=== PATIENT | female | born 2000 | race Two or more races ===

== ENCOUNTER 2023-09-13 01:15 | Emergency (ER) | payer MEDICAID, OTHER ==
[~2023-09-13] VITALS: Ht 167.6 cm; Wt 93.6 kg
[2023-09-13] MEDS: SODIUM CHLORIDE 0.9% 1,000 ML IVB ONE (02:30)
[2023-09-13] MEDS: MORPHINE SULFATE INJ 2 MG/ml SYRG IM ONE (02:30)
[2023-09-13 02:52] LABS: Basophils # (auto) 0 10 ^3/uL (0-0.2); Basophils % (auto) 0.3 % (0.0-2.0); Eosinophils # (auto) 0 10 ^3/uL (0-0.8); Eosinophils % (auto) 0.1 % (0.0-7.0); Hematocrit 38.2 % (36.0-46.0); Hemoglobin 12.8 g/dL (12.2-16.2); Lymphocytes # (auto) 1.5 10 ^3/uL (0.4-5.4); Lymphocytes % (auto) 13.8 % (10.0-50.0); Mean Corpuscular Hemoglobin 29.2 pg (28.0-32.0); Mean Corpuscular Hgb Conc. 33.5 g/dL (32.0-36.0); Mean Corpuscular Volume 87.1 fL (80.0-100.0); Monocytes # (auto) 0.4 10 ^3/uL (0-1.3); Monocytes % (auto) 4.1 % (0.0-12.0); Neutrophils # (auto) 8.9 10 ^3/uL (1.6-8.6); Neutrophils % (auto) 81.7 % (37.0-80.0); Red Blood Cells 4.39 10^6/uL (4.0-5.20); Red Cell Distribution Width 13.5 % (11.8-14.3); White Blood Cell 10.9 10^3/uL (4.4-10.8)
[2023-09-13 03:06] LABS: INR 1.06 (0.9-1.15); Prothrombin Time 11.1 sec (9.3-11.8)
[2023-09-13 03:07] LABS: Alanine Aminotransferase 37 U/L (7-40); Albumin 4.6 g/dL (3.2-4.8); Alkaline Phosphatase 104 U/L (46-116); Anion Gap 6 (5-15); Aspartate Aminotransferase 22 U/L (13-40); BUN/Creatinine Ratio 8.9 (10.0-20.0); Blood Urea Nitrogen 5 mg/dL (9-23); Calcium 9.4 mg/dL (8.7-10.4); Carbon Dioxide 25 mmol/L (20-30); Chloride 106 mmol/L (98-107); Glucose 107 mg/dL (74-106); Lipase 43 U/L (12-53); Potassium 3.9 mmol/L (3.5-5.1); Sodium 137 mmol/L (136-145)
[2023-09-13 03:08] LABS: Bilirubin, Total 0.6 mg/dL (0.2-1.0); Total Protein 7.8 g/dL (5.7-8.2)
[2023-09-13 03:18] LABS: Urine Bacteria NONE SEEN /hpf (None Seen); Urine Blood 2+ /uL (Negative); Urine Clarity Clear (Clear); Urine Protein, UAD Negative (Negative); Urine Urobilinogen Normal (Negative); Urine WBC 1 /hpf (0 - 5); Urine pH 6.5 (5.0-8.0)
[2023-09-13 03:23] LABS: Urine Color Straw (Yellow)
[2023-09-13] MEDS: ACETAMINOPHEN 500 MG TAB PO ONE (03:36)
[2023-09-13] MEDS: ONDANSETRON ODT 4 MG TAB PO ONE (03:36)
[2023-09-13] MEDS ORDERED: ACET-6 PO (05:25)
[2023-09-13 06:03] VITALS: BP 113/63; PULSE 77; RESP 17; TEMP 98.5; O2SAT 98
== END 2023-09-13 06:08 | disposition home or self-care (01) ==
LOC: ER 01:15
DX: R10.12 Left upper quadrant pain (principal); R10.2 Pelvic and perineal pain; R11.2 Nausea with vomiting, unspecified; R19.7 Diarrhea, unspecified
CPT/HCPCS: 36415; 71250; 74176; 80053; 81001; 83605; 83690; 84702; 85025; 85610; 85730; 96360; 96361; 99284; J7030; Q0162

== ENCOUNTER 2025-01-18 01:44 | Emergency (ER) | payer MEDICAID ==
[~2025-01-18] VITALS: Ht 165.1 cm; Wt 87.4 kg
[~2025-01-18 01:44] MED LIST: ACET-6 PO
[2025-01-18 02:29] LABS: Basophils # (auto) 0.1 10 ^3/uL (0-0.2); Basophils % (auto) 0.4 % (0.0-2.0); Eosinophils # (auto) 0 10 ^3/uL (0-0.8); Eosinophils % (auto) 0.4 % (0.0-7.0); Hematocrit 39.4 % (36.0-46.0); Hemoglobin 13.5 g/dL (12.2-16.2); Lymphocytes # (auto) 2.6 10 ^3/uL (0.4-5.4); Lymphocytes % (auto) 19.7 % (10.0-50.0); Mean Corpuscular Hemoglobin 29.4 pg (28.0-32.0); Mean Corpuscular Hgb Conc. 34.4 g/dL (32.0-36.0); Mean Corpuscular Volume 85.5 fL (80.0-100.0); Monocytes # (auto) 0.7 10 ^3/uL (0-1.3); Monocytes % (auto) 5.1 % (0.0-12.0); Neutrophils # (auto) 9.8 10 ^3/uL (1.6-8.6); Neutrophils % (auto) 74.4 % (37.0-80.0); Nucleated Red Blood Cells % 0.3 %; Platelet Count (auto) 402 10^3/uL (140-450); Red Blood Cells 4.61 10^6/uL (4.0-5.20); Red Cell Distribution Width 13.5 % (11.8-14.3); White Blood Cell 13.1 10^3/uL (4.4-10.8)
[2025-01-18 02:45] LABS: Alanine Aminotransferase 30 U/L (7-40); Alkaline Phosphatase 113 U/L (46-116); Anion Gap 13 (5-15); Aspartate Aminotransferase 23 U/L (<34); BUN/Creatinine Ratio 19.4 (10.0-20.0); Blood Urea Nitrogen 14 mg/dL (9-23); Calcium 9.3 mg/dL (8.7-10.4); Carbon Dioxide 22 mmol/L (20-31); Chloride 104 mmol/L (98-107); Sodium 139 mmol/L (136-145); Total Protein 7.9 g/dL (5.7-8.2)
[2025-01-18 02:46] LABS: Albumin 4.9 g/dL (3.2-4.8); Bilirubin, Total 0.7 mg/dL (0.2-1.0); Glucose 115 mg/dL (74-106); Potassium 3.1 mmol/L (3.5-5.1)
[2025-01-18] MEDS ORDERED: HYDR-3682 PO (03:11)
[2025-01-18] MEDS ORDERED: ESCI5TAB PO (03:11)
--- NOTE | 2025-01-18 03:15 | ED.PDOC ---
Psychiatric HPI Comments PT C/O ANXIETY/ PANIC AND ELEVATED BP. AFTER WAKING UP WITH N/V, SOB, SHAKING, AND ANXIETY/DEPRESSION PT HAD HER BROTHER BRING HER TO THE ED. PT SAYS SHE HAS BEEN DEALING WITH EXTRA STRESSORS CURRENTLY. PT SLIGHTLY TACHY AT 110, ALL OTHER VSS, RR EVEN AND UNLABORED ON RA. Chief Complaint: Anxiety Time Seen by MD: 01:47 Reviewed Notes: Nurses Notes, Medications, Allergies Information Source: Patient Mode of Arrival: Ambulatory Past Medical History PAST MEDICAL HISTORY: Denies Surgical History: Denies all surgeries OPHTHALMIC MEDICAL ASSISTANT History: No Pertinent OPHTHALMIC MEDICAL ASSISTANT History Family History Family History: Unknown Social History Smoker: Non-Smoker Alcohol: Denies ETOH Use Drugs: Denies Drug Use Constitutional: denies: chills, diaphoresis, fatigue, fever, malaise, sweats, weakness, others EENTM: denies: blurred vision, double vision, ear bleeding, ear discharge, ear drainage, ear pain, ear ringing, eye pain, eye redness, hearing loss, mouth pain, mouth swelling, nasal discharge, nose bleeding, nose congestion, nose pain, photophobia, tearing, throat pain, throat swelling, voice changes, others Respiratory: denies: cough, hemoptysis, orthopnea, SOB at rest, shortness of breath, SOB with excertion, stridor, wheezing, others Cardiovascular: denies: chest pain, dizzy spells, diaphoresis, Dyspnea on exertion, edema, irregular heart beat, left arm pain, lightheadedness, palpitations, PND, syncope, others Gastrointestinal: denies: abdomen distended, abdominal pain, blood streaked bowels, constipated, diarrhea, dysphagia, difficulty swallowing, hematemesis, melena, nausea, poor appetite, poor fluid intake, rectal bleeding, rectal pain, vomiting, others Genitourinary: denies: abnormal vagina bleeding, burning, dyspareunia, dysuria, flank pain, frequency, hematuria, incontinence, pain, , vagina discharg e, urgency, others Neurological: denies: dizziness, fainting, headache, left sided numbness, left sided weakness, numbness, paresthesia, pre-existing deficit, right sided numbness, right sided weakness, seizure, speech problems, tingling, tremors, weakness, others Musculoskeletal: denies: back pain, gout, joint pain, joint swelling, muscle pain, muscle stiffness, neck pain, others Integumetry: denies: bruises, change in color, change in hair/nails, dryness, laceration, lesions, lumps, rash, wounds, others Allergic/Immunocompromised: denies: Difficulty Healing, Frequent Infections, Hives, Itching, others Hematologic/Lymphatic: denies: anemia, blood clots, easy bleeding, easy bruising, swollen glands, others Endocrine: denies: excessive hunger, excessive sweating, excessive thirst, excessive urination, flushing, intolerance to cold, intolerance to heat, unexplained weight gain, unexplained weight loss, others Psychiatric: denies: anxiety, bipolar disorder, depression, hopeless, panic d isorder, schizophrenia, sleepless, suicidal, others Physical Exam General Appearance: No Apparent Distress, Normal HEENT: Normal ENT Inspection, Pharynx Normal, TMs Normal Neck: Full Range of Motion, Non-Tender Respiratory: Lungs Clear, No Respiratory Distress, Normal Breath Sounds Cardiovascular: No Edema, No JVD, No Murmur, No Gallop, Normal Peripheral Pulses, Regular Rate/Rhythm Breast Exam: Deferred Gastrointestinal: Non Tender, Soft Genitalia: Deferred Pelvic: Deferred Rectal: Deferred Extremities: Normal capillary refill, Normal inspection, Normal range of motion, Non-tender, No pedal edema Musculoskeletal : Apperance: Normal Neurologic: Alert, No Motor Deficits, Normal Affect, Normal Mood, No Sensory Deficits Cerebellar Function: Normal Reflexes: Normal Skin: Dry, Normal Color, Warm Lymphatic: No Adenopathy Was a procedure done? Was a procedure done?: No Psych Differential Dx Psych. Differential Dx: Hopeless, Sleepless OD Differential Dx: Bipolar Disorder, Personality Disorder X-Ray, Labs, Meds, VS Vital Signs Date Time Temp Pulse Resp B/P (MAP) Pulse Ox O2 Delivery O2 Flow Rate FiO2 01/18/25 02:02 98.1 110 20 128/94 (105) 94 98.1 Lab Test 01/18/25 02:12 Range/Units White Blood Count 13.1 H 4.4-10.8 10^3/uL Red Blood Count 4.61 4.0-5.20 10^6/uL Hemoglobin 13.5 12.2-16.2 g/dL Hematocrit 39.4 36.0-46.0 % Mean Corpuscular Volume 85.5 80.0-100.0 fL Mean Corpuscular Hemoglobin 29.4 28.0-32.0 pg Mean Corpuscular Hemoglobin Concent 34.4 32.0-36.0 g/dL Red Cell Distribution Width 13.5 11.8-14.3 % Platelet Count 402 140-450 10^3/uL Mean Platelet Volume 7.3 6.9-10.8 fL Neutrophils (%) (Auto) 74.4 37.0-80.0 % Lymphocytes (%) (Auto) 19.7 10.0-50.0 % Monocytes (%) (Auto) 5.1 0.0-12.0 % Eosinophils (%) (Auto) 0.4 0.0-7.0 % Basophils (%) (Auto) 0.4 0.0-2.0 % Neutrophils # (Auto) 9.8 H 1.6-8.6 10 ^3/uL Lymphocytes # (Auto) 2.6 0.4-5.4 10 ^3/uL Monocytes # (Auto) 0.7 0-1.3 10 ^3/uL Eosinophils # (Auto) 0 0-0.8 10 ^3/uL Basophils # (Auto) 0.1 0-0.2 10 ^3/uL Nucleated Red Blood Cells 0.3 % Sodium Level 139 136-145 mmol/L Potassium Level 3.1 L 3.5-5.1 mmol/L Chloride Level 104 98-107 mmol/L Carbon Dioxide Level 22 20-31 mmol/L Anion Gap 13 5-15 Blood Urea Nitrogen 14 9-23 mg/dL Creatinine 0.72 0.550-1.02 mg/dL Glomerular Filtration Rate Calc 121 >90 mL/min BUN/Creatinine Ratio 19.4 10.0-20.0 Serum Glucose 115 H 74-106 mg/dL Calcium Level 9.3 8.7-10.4 mg/dL Total Bilirubin 0.7 0.2-1.0 mg/dL Aspartate Amino Transferase (AST) 23 <34 U/L Alanine Aminotransferase (ALT) 30 7-40 U/L Alkaline Phosphatase 113 46-116 U/L Total Protein 7.9 5.7-8.2 g/dL Albumin 4.9 H 3.2-4.8 g/dL Thyroid Stimulating Hormone (TSH) 3.68 0.55-4.78 uIU/mL X-Ray, Labs, Meds, VS Comment CBC and CMP TSH within normal limits. We will start trial of Lexapro and hydroxyzine advised to take medications as prescribed side effects discussed. Advised to call her PCP and get a referral or call the back of her car and schedule an appointment with a psychologist for CBT. Advised on ER return precautions patient indicates understanding agrees with discharge plan of care. Time of 1ST Reevaluation: 01:47 Reevaluation 1ST: Unchanged Time of 2ND Reevaluation: 03:12 Reevaluation 2ND: Improved Patient Education/Counseling: Diagnosis, Treatment, Prognosis, Need For Follow Up Family Education/Counseling: Prognosis, Need For Follow Up Departure 1 Departure Time of Disposition: 03:10 Impression: Primary Impression: Mixed anxiety depressive disorder Disposition: 01 HOME / SELF CARE / HOMELESS Condition: Stable e-Prescriptions Hydroxyzine Hcl (Hydroxyzine Hcl) 25 Mg Tab 1 TAB PO TID PRN for 10 Days, #30 TAB One tab p.o. as needed for anxiety and panic attack 3 times daily Prov: ORION SMITH 01/18/25 Escitalopram Oxalate (Lexapro) 5 Mg Tab 1 TAB PO DAILY for 14 Days, #14 TAB Prov: ORION SMITH 01/18/25 Discharged With: Relative (Sibling) Critical Care Note Critical Care Time?: No Stability Stability form required: No ORION SMITH Jan 18, 2025 03:15
[2025-01-18 03:24] VITALS: PULSE 108; RESP 21; O2SAT 96
[2025-01-18 04:00] VITALS: BP 117/71; PULSE 98; RESP 18; TEMP 98.1; O2SAT 98
== END 2025-01-18 04:22 | disposition home or self-care (01) ==
LOC: ER 01:44
DX: F41.8 Other specified anxiety disorders (principal); R25.1 Tremor, unspecified; R06.02 Shortness of breath
CPT/HCPCS: 36415; 80053; 84443; 85025

== ENCOUNTER 2025-01-18 20:36 | Emergency (ER) | payer MEDICAID ==
[~2025-01-18] VITALS: Ht 165.1 cm; Wt 89.6 kg
[~2025-01-18 20:36] MED LIST changes: +ESCI5TAB PO; +HYDR-3682 PO
[2025-01-18 21:07] VITALS: BP 132/71; PULSE 99; RESP 18; TEMP 98.6; O2SAT 96
--- NOTE | 2025-01-18 21:49 | ED.PDOC ---
Psychiatric HPI Comments 24 year old female presents to ER with complaints of n/v x 1 day. Patient states she experienced 1 episode of n/v after starting Lexapro and Hydroxyzine that she was prescribed today. Denies any pain and presents to ER alert and oriented x4, with steady gait and is noted to be slightly anxious on arrival with vitals stable. Denies shortness of breath, chest pain, numbness/tingling, abdominal pain, SI/HI, headache, hallucinations or any further symptoms/complaints Chief Complaint: Anxiety Time Seen by MD: 20:49 Primary Care Provider: [facility] Reviewed Notes: Nurses Notes, Medications, Allergies Mode of Arrival: Ambulatory Past Medical History PAST MEDICAL HISTORY: Denies Surgical History: Denies all surgeries TERMITE TREATER History: No Pertinent TERMITE TREATER History Family History Family History: Unknown Social History Smoker: Non-Smoker Alcohol: Denies ETOH Use Drugs: Denies Drug Use Lives In: Home Constitutional: denies: chills, diaphoresis, fatigue, fever, malaise, sweats, weakness, others EENTM: denies: blurred vision, double vision, ear bleeding, ear discharge, ear drainage, ear pain, ear ringing, eye pain, eye redness, hearing loss, mouth pain, mouth swelling, nasal discharge, nose bleeding, nose congestion, nose p ain, photophobia, tearing, throat pain, throat swelling, voice changes, others Respiratory: denies: cough, hemoptysis, orthopnea, SOB at rest, shortness of breath, SOB with excertion, stridor, wheezing, others Cardiovascular: denies: chest pain, dizzy spells, diaphoresis, Dyspnea on exertion, edema, irregular heart beat, left arm pain, lightheadedness, palpitations, PND, syncope, others Gastrointestinal: reports: others (As stated in HPI) Genitourinary: denies: abnormal vagina bleeding, burning, dyspareunia, dysuria, flank pain, frequency, hematuria, incontinence, pain, , vagina discharge, urgency, others Neurological: denies: dizziness, fainting, headache, left sided numbness, left sided weakness, numbness, paresthesia, pre-existing deficit, right sided numbness, right sided weakness, seizure, speech problems, tingling, tremors, weakness, others Musculoskeletal: denies: back pain, gout, joint pain, joint swelling, muscle pain, muscle stiffness, neck pain, others Integumetry: denies: bruises, change in color, change in hair/nails, dryness, laceration, lesions, lumps, rash, wounds, others Allergic/Immunocompromised: denies: Difficulty Healing, Frequent Infections, Hives, Itching, others Hematologic/Lymphatic: denies: anemia, blood clots, easy bleeding, easy bruising, swollen glands, others Endocrine: denies: excessive hunger, excessive sweating, excessive thirst, excessive urination, flushing, intolerance to cold, intolerance to heat, unexplained weight gain, unexplained weight loss, others Psychiatric: denies: anxiety, bipolar disorder, depression, hopeless, panic disorder, schizophrenia, sleepless, suicidal, others Physical Exam General Appearance: Mild Distress (Patient slightly anxious) HEENT: Normal ENT Inspection, PERRL/EOMI, Pharynx Normal, TMs Normal Neck: Full Range of Motion, Non-Tender, Normal Respiratory: Chest Non-Tender, Lungs Clear, No Accessory Muscle Use, No Respiratory Distress, Normal Breath Sounds Cardiovascular: No Murmur, No Gallop, Regular Rate/Rhythm Breast Exam: Deferred Gastrointestinal: Non Tender, No Pulsatile Mass, Soft Genitalia: Deferred Pelvic: Deferred Rectal: Deferred Extremities: Normal capillary refill, Normal range of motion Neurologic: Alert, dog barber II-XII nml as Tested, No Motor Deficits, No Sensory Deficits Cerebellar Function: Normal Reflexes: Normal Skin: Dry, Normal Color, Warm Peripheral Pulses: 2+ Radial (R), 2+ Radial (L), 2+ Brachial (R), 2+ Brachial ( L) Lymphatic: No Adenopathy Was a procedure done? Was a procedure done?: No Sedation Sedation?: No Psych Differential Dx Intoxication Differential Dx: Hallucinations, CVA, Electrolyte Imbalance X-Ray, Labs, Meds, VS Vital Signs Date Time Temp Pulse Resp B/P (MAP) Pulse Ox O2 Delivery O2 Flow Rate FiO2 01/18/25 21:07 Room Air* 0 21 01/18/25 21:07 98.6 99 18 132/71 (91) 96 98.6 01/18/25 20:45 98.6 99 18 132/71 (91) 96 98.6 Patient had improvement in symptoms, tolerating p.o. intake well and in no distress prior to discharge Advised to follow up with PCP and psychiatrist in 1-2 days Patient alert and oriented x4 prior to discharge. Patient verbalized understanding and agreeable with current plan of care Advised to return to ER immediately if symptoms worsen Time of 1ST Reevaluation: 21:20 Reevaluation 1ST: N/A Patient Education/Counseling: Diagnosis, Treatment, Prognosis, Need For Follow Up Family Education/Counseling: No Family Present Departure 1 Departure Time of Disposition: 21:42 Impression: Primary Impression: Anxiety Disposition: 01 HOME / SELF CARE / HOMELESS Condition: Stable Discharged With: Self Critical Care Note Critical Care Time?: No Stability Stability form required: No Heart Score Heart Score: Heart Score Response (Comments) Value History N/A 0 EKG N/A 0 Age N/A 0 Risk Factors N/A 0 Troponin N/A 0 Total 0 ALEXUS JONES Jan 18, 2025 21:49
== END 2025-01-18 21:58 | disposition home or self-care (01) ==
LOC: ER 20:36
DX: F41.9 Anxiety disorder, unspecified (principal)